=== PATIENT | female | born 1990 | race Asian ===

== ENCOUNTER → 2021-05-17 12:50 | Outpatient (BNVA) | payer OTHER, SELFPAY | PROVIDERS: Visit Provider Physician Assistant ==

== ENCOUNTER 2021-05-21 19:16 | Outpatient (REF) | payer OTHER, SELFPAY ==
--- NOTE | ~2021-05-21 | MR_ITS ---
EXAMINATION: MR KNEE WITHOUT CONTRAST, LEFT CLINICAL INFORMATION: Tear of the medial meniscus. COMPARISON: None TECHNIQUE: MRI of the knee without contrast was performed using routine sequences on a high-field scanner. FINDINGS: MENISCI: Medial Meniscus: Intact Lateral Meniscus: Intact. Small cyst measuring approximately 6 mm abutting the insertion of the anterior root. LIGAMENTS: Cruciate: There are postop changes related to anterior cruciate ligament reconstruction. This appears intact. There is a small 4 mm cystic area within the medial tibial spine likely enthesopathic without clinical significance. PCL intact. Collateral: Intact. EXTENSOR MECHANISM: Intact. ARTICULAR CARTILAGE/BONE: Patellofemoral Compartment: Normal. Medial Compartment: Normal. Lateral Compartment: Normal. JOINT FLUID AND BURSAE: Normal. MR/MR knee LT wo con IMPRESSION: Postop changes related to anterior cruciate ligament reconstruction which is intact. A small cyst in the anterior recess and perhaps originating from the anterior root of the lateral meniscus. Small cyst abutting the insertion of the anterior root of the lateral meniscus compatible with a small ganglion cyst. There is of uncertain clinical significance.
== END 2021-05-21 19:17 | disposition home or self-care (01) ==
LOC: HO.MRI 19:16
PROVIDERS: PCP Pediatrics; Visit Provider Physician Assistant
DX: S83.242D Other tear of medial meniscus, current injury, left knee, subsequent encounter (principal)
CPT/HCPCS: 73721

== ENCOUNTER → 2021-05-24 13:25 | Outpatient (BNVA) | payer OTHER, SELFPAY | PROVIDERS: PCP Pediatrics; Visit Provider Physician Assistant ==